=== PATIENT | female | born 1940 | race Caucasian/White ===

== ENCOUNTER 2019-04-05 06:51 | Day surgery (SDC) | payer MEDICARE ==
[2019-04-05] VITALS (11 sets, daily range): BP systolic 124–177; BP diastolic 63–97
[~2019-04-05] VITALS: Ht 165.1 cm; Wt 76.3 kg
[~2019-04-05 06:51] MED LIST: ALB0.5UD IH; ASPI-611 PO; ATOR20TA2 PO; BUDE10.22 INH; CHOL2000 PO; CLOP75TA9 PO; OMEG500C PO; PANT-47 PO; TRAM50TA2 PO
[2019-04-05] MEDS ORDERED: diphenhydrAMINE 25mg capsule PO PRN (07:30)
[2019-04-05] MEDS ORDERED: normal saline 1,000 ML IV SCH (07:30)
[2019-04-05] MEDS ORDERED: PRED1TAB PO (07:40)
[2019-04-05] MEDS ORDERED: METO-395 PO (07:40)
[2019-04-05] MEDS ORDERED: OSC500T PO (07:40)
[2019-04-05] MEDS ORDERED: ZET10T PO (07:40)
[2019-04-05] MEDS ORDERED: FURO-150 PO (07:40)
[2019-04-05] MEDS ORDERED: NITR0.4T48 SL (07:40)
[2019-04-05] MEDS ORDERED: LIDOcaine 1% (10mg/ml)w/preservative injection 20ml MDV ONE (08:48)
[2019-04-05] MEDS ORDERED: midazolam 2 mg/2 ml injection ONE (08:48)
[2019-04-05] MEDS ORDERED: fentaNYL/PF 50MCG/1 ML 2ML syringe ONE (08:48)
[2019-04-05] MEDS ORDERED: heparin 1,000unit/ml 10ml vial 10 ML ONE (08:48)
[2019-04-05] MEDS ORDERED: iohexol 350MG/ML 100ml bottle IV ONE (08:48)
[2019-04-05 08:54] LABS: BASOPHILS % (AUTO) 0.7 % (0-1); EOSINOPHILS # (AUTO) 0.1 X10'3 (0-0.9); EOSINOPHILS % (AUTO) 1.7 % (0-6); HEMOGLOBIN 11.1 g/dl (12.0-16.0); LYMPHOCYTES # (AUTO) 2.6 X10'3 (1.1-4.8); LYMPHOCYTES % (AUTO) 43.5 % (21-51); MEAN CORPUSCULAR HEMOGLOBIN 32.2 PG (27.0-31.0); MEAN CORPUSCULAR HGB CONC 33.5 g/dL (33.0-36.5); MEAN CORPUSCULAR VOLUME 96.1 FL (78-98); MONOCYTES # (AUTO) 0.5 X10'3 (0-0.9); MONOCYTES % (AUTO) 9.3 % (2-12); NEUTROPHILS # (AUTO) 2.6 X10'3 (1.8-7.7); NEUTROPHILS % (AUTO) 44.8 % (42-75); PLATELET COUNT 250 X10'3 (140-440); RED BLOOD COUNT 3.44 X10'6 (4.20-5.60); RED CELL DISTRIBUTION WIDTH 13.3 % (11.5-14.5); WHITE BLOOD COUNT 5.9 X10'3 (4.5-11.0)
[2019-04-05 09:01] LABS: ALBUMIN 3.1 G/DL (3.4-5.0); ANION GAP 8 (8-16); BLOOD UREA NITROGEN 18 MG/DL (7-18); BUN/CREATININE RATIO 21.4 (6.6-38.0); CALCIUM 8.5 MG/DL (8.5-10.1); CHLORIDE 111 MMOL/L (99-107); CREATININE 0.84 MG/DL (0.40-0.90); GLUCOSE 82 MG/DL (70-104); MAGNESIUM 1.8 MG/DL (1.5-2.4); POTASSIUM 3.4 MMOL/L (3.5-5.1); SODIUM 146 MMOL/L (135-145); TOTAL CARBON DIOXIDE 26.7 MMOL/L (24-32); eGFR 66 ML/MIN
[2019-04-05] MEDS ORDERED: iohexol 350 MG/ML 50ML vial IV ONE ×4 (09:41→10:08)
[2019-04-05] MEDS ORDERED: nitroGLYCERIN 0.4mg SUBLingual tab SL ONE (10:26)
[2019-04-05] MEDS ORDERED: acetaminophen 325mg tablet PO PRN (11:00)
[2019-04-05] MEDS ORDERED: proCHLORperazine 10 MG/2 ml inj IV PRN (11:00)
[2019-04-05] MEDS ORDERED: OXAZEpam 15mg capsule PO PRN (11:00)
[2019-04-05] MEDS ORDERED: ondansetron/PF 4mg/2ml inj IV PRN (11:00)
[2019-04-05] MEDS ORDERED: HYDROcodone/acetaminophen 10/325mg tab PO PRN (11:00)
[2019-04-05] MEDS ORDERED: HYDROcodone/acetaminophen 5mg/325mg tablet PO PRN (11:00)
== END 2019-04-05 16:20 | disposition home or self-care (01) ==
LOC: SSTAY O 06:51
PROVIDERS: ATTEND Internal Medicine Cardiovascular Disease
DX: R07.9 Chest pain, unspecified (principal); M79.604 Pain in right leg; I25.118 Atherosclerotic heart disease of native coronary artery with other forms of angina pectoris; I25.82 Chronic total occlusion of coronary artery; I70.211 Atherosclerosis of native arteries of extremities with intermittent claudication, right leg; E78.5 Hyperlipidemia, unspecified; I10 Essential (primary) hypertension; J44.9 Chronic obstructive pulmonary disease, unspecified; K21.9 Gastro-esophageal reflux disease without esophagitis; M81.0 Age-related osteoporosis without current pathological fracture; I25.2 Old myocardial infarction; Z98.890 Other specified postprocedural states; Z95.1 Presence of aortocoronary bypass graft; Z79.899 Other long term (current) drug therapy; Z79.82 Long term (current) use of aspirin; Z72.89 Other problems related to lifestyle; Z87.891 Personal history of nicotine dependence; Z88.5 Allergy status to narcotic agent; Z88.8 Allergy status to other drugs, medicaments and biological substances; Z91.041 Radiographic dye allergy status; Z79.01 Long term (current) use of anticoagulants
CPT/HCPCS: 36415; 75716; 80048; 83735; 85025; 85610; 93005; 93459; 99152; 99153; C1760; C1769; C1894; J1644; J2001; J2250; J3010; J7030; Q0163; Q9967; 36140; A4620; A6258

== ENCOUNTER 2025-05-05 08:04 | Day surgery (SDC) | payer BC, MEDICARE ==
[~2025-05-05] VITALS: Ht 162.6 cm; Wt 66.1 kg
[2025-05-05] VITALS (14 sets, daily range): BP systolic 94–188; BP diastolic 56–86; PULSE 59–90; RESP 11–19; TEMP 97.3; O2SAT 93–98
[~2025-05-05 08:04] MED LIST changes: -ALB0.5UD IH; +AMLO10TA13 PO; -ATOR20TA2 PO; -BUDE10.22 INH; +CALC600T26 PO; +CETI-90 PO; -CHOL2000 PO; +CLOP75TA34 PO; -CLOP75TA9 PO; +DOCU100C40 PO; +EZET10TA80 PO; +FURO20TA4 PO; +GABA300C PO; +IPRA3AMP31 NEB; +LACT1CAP65 PO; +LOSA100T58 PO; +MULT-1085 PO; +OMEG-45 PO; -OMEG500C PO; +OMEP40CA21 PO; +OXYC1TAB17 PO; -PANT-47 PO; +ROSU40TA89 PO; -TRAM50TA2 PO
[2025-05-05] MEDS ORDERED: AMLO10TA5 PO (08:41)
[2025-05-05] MEDS ORDERED: TRAM50TA2 PO (08:45)
[2025-05-05 09:35] LABS: MEAN PLATELET VOLUME 9.4 FL (7.4-10.4); RED CELL DISTRIBUTION WIDTH 13.6 % (11.5-14.5)
[2025-05-05] MEDS: normal saline 1000ml 1,000 ML IV SCH (09:45)
[2025-05-05] MEDS: hydrocortisone sod succ/PF 100mg/2ml inj. IV ONE (09:45)
[2025-05-05 09:46] LABS: INR 1.0 INR
[2025-05-05 10:01] LABS: CREATININE 1.08 MG/DL (0.40-0.90); TOTAL CARBON DIOXIDE 31.3 MMOL/L (24-32); eCRCL 35 ML/MIN; eGFR 49 ML/MIN
[2025-05-05] MEDS ORDERED: iohexol 300mg/ml 100ml inj. ONE (11:56)
[2025-05-05] MEDS ORDERED: heparin 1,000 UNITS/NS 500ml 500 ML ONE (11:56)
[2025-05-05] MEDS ORDERED: fentaNYL/PF 50MCG/1 ML 2ML syringe ONE ×2 (12:41→13:35)
[2025-05-05] MEDS ORDERED: midazolam 1 mg/ML 2ml injection ONE (12:41)
--- NOTE | 2025-05-05 12:45 | PROGRESS NOTE ---
H&P - Interval Note Providers to CC ~ Patient examined and condition: Yes Interval changes as follows: New paper H and P in chart as of today. Multiple vascular interventions the most recent being a Left external iliac stenting and right common and external iliac stenting with lithotripsy 6mm R Ext iliac art on 11/08/22. Referred by Dr Almanza. Risks benefits alt of pelvic angiography and possible machine captain/ stent lithotripsy d/w pt and informed consent disclosed. ASA 2, MAL 2. JAYDE STARK MD May 05, 2025 12:45
[2025-05-05] MEDS ORDERED: heparin 1,000unit/ml 10ml vial 10 ML ONE (13:13)
--- NOTE | 2025-05-05 14:29 | PROGRESS NOTE ---
Progress Note - Angio Providers to CC ~ Angio Progress Note: Very difficult left common femoral artery access due to severe scarring, however, successful REIA angioplasty and stenting at prox vessel at site of existing stent stenosis and scarring. Placed 8x40mm self expanding stent at officer captain up to 6mm with good results no complications. EBL less than 5cc. Mynx closure device placed. Dictated. Ok to resume antiplatelets and any anticoag tomorrow AM if no hematoma at left groin and no bleeding. F/U thru Dr Almanza's clinic. JAYDE STARK MD May 05, 2025 14:29
[2025-05-05] MEDS ORDERED: normal saline 1000ml 1,000 ML IV SCH (14:30)
[2025-05-05] MEDS: HYDROcodone/acetaminophen 5mg/325mg tablet PO PRN (15:55)
--- NOTE | 2025-05-05 16:39 | RADIOLOGY REPORT ---
Pelvic angiography including right proximal external iliac artery angioplasty and stenting HISTORY: Right leg claudication. Numerous previous interventional endovascular and surgical interventions. The most recent interventional procedure was in October 2022 11/08/2022 where right external iliac artery stenting and lithotripsy and left external iliac artery stenting was performed Procedures included the following 1. Ultrasound-guided access left common femoral artery with subsequent pelvic angiography. 2. Contralateral access of third order right common femoral artery for subsequent catheter wire manipulation for stenting proximal right external iliac artery. 3. Post stent angioplasty right external iliac artery. 4. Mynx closure device placement left common femoral artery. 5. Conscious sedation The above procedures were explained to the patient and after informed consent, patient was prepped and draped in usual sterile fashion. Surgical timeout performed. Conscious sedation supplied by conscious sedation certified nurse with all while signs recorded on electronic medical record. Procedure start time 1253 hours and total sedation time of 60 minutes. A total of 7 cc 1% lidocaine solution used for local anesthesia. A total of 1.5 mg Versed and 125 mcg fentanyl given intravenously. A total of 30 cc Omnipaque 300 used as contrast. During the procedure total 3000 units heparin was administered intravenously. Total fluoroscopy time was 8.3 minutes with dose of 114 mGy. Utilizing ultrasound guidance and a micropuncture kit entry was gained into the left common femoral artery. Real-time ultrasound examination of the artery demonstrated significant calcific as well as scar changes making access quite difficult. A stiff 4 [place] micropuncture kit was used due to the scarring. Next after advancement of an 018 wire into the left common iliac artery the system was upsized to 5 [place] rim catheter over an Amplatz wire. Next utilizing the rim catheter and angled Glidewire successful manipulation into the contralateral third order right common femoral artery was performed for subsequent placement of stent as described below. FINDINGS: Pelvic angiography: The distal aorta is markedly small in caliber without evidence of focal stenosis however. Via a retrograde angiogram from the left common iliac artery visualization of the pelvic vasculature was performed. The bilateral common iliac arteries are widely patent. The bilateral internal iliac arteries are poorly demarcated on this examination with attention directed to the external iliac arteries. Left: The left external iliac artery is somewhat irregular in contour with evidence of calcific changes at the mid external iliac artery although no definite flow significant stenosis demonstrated. However note made of a patent stent within the left common iliac artery. Right: There are stents from the proximal right common iliac artery to the distal right external iliac artery. At site of stent overlap at the proximal right external iliac artery there is a marked amount of calcific change as well as stenosis on the order of 70% of area reduction. This was effectively crossed with a catheter wire system with subsequent access into the right common femoral artery for advancement of a 6 [place] sheath to the mid left common iliac artery. However due to the severe amount of scarring at the left common femoral artery further advancement of the sheath was not possible without risk of vessel injury. A self-expanding stent in the form of Absolute Pro 8 mm x 40 mm was successfully deployed centered at the proximal right external iliac artery stenosis. Following stent deployment a 6 mm x 4 cm Swifto balloon was used for angioplasty of the newly placed stent. Post 8 dat by 30 seconds angioplasty angiography demonstrated significant improvement in flow and no evidence of extravasation or hematoma. Next, the system was retracted to the left external iliac artery and an oblique angiogram was performed for purposes of determining candidacy of closure device. It was deemed appropriate for the minx closure device and therefore a successful 6 [place] minx closure system was deployed utilizing fluoroscopy and contrast within the balloon to determine location of the anchor bulb. Both right and left foot pulses remained strong by Doppler following intervention. IMPRESSION: Successful treatment of flow significant stenosis at the proximal right external iliac artery with 8mm x 40mm self expanding stent and 6mm project management consultant after stent. This was for treatment of an existing in-stent stenosis that was causing continued claudication right lower extremity. Patient has a left common iliac artery that is patent. Severe scarring with calcification at the left common femoral artery access site may the procedure difficult. Further interventions may not be possible given the degree of scarring.
[2025-05-05] MEDS: HYDROcodone/acetaminophen 5mg/325mg tablet PO ONE (17:18)
== END 2025-05-05 18:30 | disposition home or self-care (01) ==
LOC: SSTAY O 08:04
PROVIDERS: ATTEND Radiology Diagnostic Radiology
DX: I72.4 Aneurysm of artery of lower extremity (principal); Z79.01 Long term (current) use of anticoagulants; Z91.041 Radiographic dye allergy status
CPT/HCPCS: 36415; 37221; 80053; 85025; 85610; 99152; 99153; C1760; C1876; J1720; J7030; Q0163; A6213; A6258; A6449; C1725; C1769; C1894